=== PATIENT | male | born 1995 | race Caucasian/White ===

== ENCOUNTER 2021-08-19 15:51 | Emergency (ER) | payer OTHER, BC, SELFPAY ==
--- NOTE | ~2021-08-19 | XR_ITS ---
XR finger 3rd LT min 2V 08/19/2021 16:10 INDICATION: Left third finger pain after trauma PROCEDURE: 4 views left third finger COMPARISON: No prior studies for comparison. FINDINGS: Fracture, dislocation or subluxation is not identified. There is mild soft tissue swelling overlying the third proximal phalanx. No foreign bodies are identified. IMPRESSION: 1: NO ACUTE BONE OR JOINT ABNORMALITY IDENTIFIED. Reviewed, dictated and finalized at location A. ALT RAKER
--- NOTE | 2021-08-19 16:02 | ED.UPPEXIN ---
HPI - Extremity Injury (Upper) General Chief Complaint: Extremity Injury, Upper Stated Complaint: lt middle finger inj Time Seen by Provider: 08/19/21 16:02 Source: patient and RN notes reviewed Mode of arrival: ambulatory Limitations: no limitations History of Present Illness HPI narrative: Rajan is a 25 year old male patient who ambulated into [facility]. He states he dropped a steel pipe on left middle finger three weeks ago. States is is red, painful, warm with limited range of motion. Patient states he splinted it at home for a few days. Patient states it is a red ring around the knuckle that has been there for the last 3 weeks. Patient states the ring has not gotten larger or smaller there is no change patient states there was an open area across the MCP joint after initial injury. Patient states it is healed currently there is just a small opening patient states he had green drainage this morning patient states has been cleaning with peroxide and alcohol at least twice a day. Covering with Neosporin and a Band-Aid during the day leaving open at night. MD complaint: injury to: left and finger (middle finger) Related Data Allergies Allergy/AdvReac Type Severity Reaction Status Date / Time No Known Allergies Allergy Verified 08/19/21 16:05 Review of Systems Review of Systems: CONSTITUTIONAL: Denies body aches, fever, chills, or sweats. EYES: Denies visual changes, redness, or discharge. ENT: Denies rhinorrhea, congestion, sore throat, or otalgia. CARDIOVASCULAR: Denies chest pain, palpitations, or edema. RESPIRATORY: Denies cough or dyspnea. GASTROINTESTINAL: Denies abdominal pain, nausea, vomiting, or diarrhea. GENITOURINARY: Denies dysuria or hematuria. SKIN: Denies rash, itching, small open area to left middle finger; MUSCULOSKELETAL: Denies back pain, joint pain, or myalgia; left middle finger pain, redness, and swelling NEUROLOGIC: Denies headache, numbness, tingling, or weakness. PSYCH: Denies depression or anxiety. All systems reviewed & are unremarkable except as noted in HPI and below PMFSH Comments At time of signature, I have reviewed and agree with nursing past medical, surgical, social and family history unless otherwise noted. Please see nursing chart for further information. There is no relevant family history pertinent to the presenting complaint Exam Narrative: GENERAL: Well-appearing, well-nourished, and in no acute distress. HEAD: Normocephalic, atraumatic. EYES: EOMI. No redness or drainage. Conjunctivae normal. ENT: Mucous membranes pink and moist. Nares clear. No rhinorrhea. NECK: Normal AROM. Supple. No lymphadenopathy. CHEST: No respiratory distress. MUSCULOSKELETAL: No bony tenderness. EXTREMITIES: Normal range of motion. left 3rd finger swelling, and limited ROM. SKIN: Warm, dry, no rash. Capillary refill normal. Normal skin turgor; left 3rd finger with 3 cm erythemic area with pinpoint opening; healing, area with clear/green drainage, warm to touch, NEURO: No focal deficits. Alert and oriented x3. Gait steady. PSYCH: Normal affect. No signs of depression or anxiety. Course Vital Signs Vital signs: Vital Signs Temperature 36.7 C 08/19/21 16:11 Pulse Rate 85 08/19/21 16:11 Respiratory Rate 16 08/19/21 16:11 Blood Pressure 161/101 H 08/19/21 16:11 Pulse Oximetry 100 08/19/21 16:11 Temperature 36.7 C 08/19/21 16:11 Pulse Rate 85 08/19/21 16:11 Respiratory Rate 16 08/19/21 16:11 Blood Pressure 161/101 H 08/19/21 16:11 Pulse Oximetry 100 08/19/21 16:11 Reviewed. Pt has been instructed to follow up with his PCP regarding his elevated blood pressure today. MDM - Extremity Injury (Upper) Differential Diagnosis Differential diagnosis: Likely fracture of wrist and fracture of hand Medical Records Attestation: I reviewed the patient's medical records. Critical Care Time Critical Care Time Critical Care Time: No Discharge Plan Disc
[2021-08-19 16:11] VITALS: BP 161/101; PULSE 85; RESP 16; TEMP 36.7; O2SAT 100
== END 2021-08-19 16:46 | disposition home or self-care (01) ==
PROVIDERS: Emergency Provider Nurse Practitioner Family
DX: S63.633A Sprain of interphalangeal joint of left middle finger, initial encounter (principal); W20.8XXA Other cause of strike by thrown, projected or falling object, initial encounter
CPT/HCPCS: 73140; 99213; G0463

== ENCOUNTER 2022-08-27 17:32 | Emergency (ER) | payer BC, SELFPAY ==
--- NOTE | ~2022-08-27 | CT_ITS ---
EXAMINATION: CT abdomen pelvis w con DATE: 08/27/2022 19:10 INDICATION: abd pain, vomiting, transaminitis TECHNIQUE: Computed tomography (CT) of the abdomen and pelvis was performed with 100 mL Omnipaque-350 intravenous contrast. Automated exposure control and iterative reconstruction technique were employe d. The dose-length product was 1781.87 mGy-cm. COMPARISON: None. FINDINGS: Lower thorax: Unremarkable Liver: Diffuse fatty infiltration. Right lobe hemangioma. Biliary/Gallbladder: Gallbladder is normal. No bile duct dilation. Pancreas: No mass or duct dilation. Spleen: Normal. Adrenals:No mass. Kidneys: No mass, stone, or hydronephrosis. GI tract: No small or large bowel dilation. Normal appendix. Mesentery/Peritoneum: No ascites, mass, or free air. Retroperitoneum: No mass. Pelvis: Pelvic organs are within normal limits. Soft Tissues: Soft tissues and body wall unremarkable. Bones: No acute osseous finding. IMPRESSION: Steatosis. Otherwise no acute abdominopelvic process detected. Reviewed, dictated and finalized at location K. L INSTRUCTOR
[2022-08-27 17:35] VITALS: BP 159/79; PULSE 74; RESP 17; TEMP 36.1; O2SAT 99
--- NOTE | 2022-08-27 17:46 | ED.NAVMDI ---
HPI - Nausea/Vomiting/Diarrhea General Chief complaint: Nausea/Vomiting/Diarrhea Stated complaint: vomiting blood Time Seen by Provider: 08/27/22 17:37 Source: patient Mode of arrival: ambulatory Limitations: no limitations History of Present Illness HPI Narrative: This is a 26 year old male that presents to the ER for nausea and vomiting ongoing since last night. Reports he had several episodes of nausea and vomiting last night. Reports today he had an episode of vomiting and noted a couple of streaks of what he thought was bright red blood. He has had no further episodes of vomiting since. He is not on any anticoagulation. Denies fever, chest pain, or abdominal pain. Related Data Allergies Allergy/AdvReac Type Severity Reaction Status Date / Time No Known Allergies Allergy Verified 08/19/21 16:05 Review of Systems Review of Systems: CONSTITUTIONAL: Denies fever CARDIOVASCULAR: Denies chest pain, or edema. RESPIRATORY: Denies dyspnea. GASTROINTESTINAL: Reports nausea and vomiting. Denies abdominal pain or melena All systems reviewed & are unremarkable except as noted in HPI and below PMFSH Past Medical History Medical History (Updated 08/27/22 @ 19:47 by Mary Hernandez PA-C) No active medical problems Social History Social History (Updated 08/27/22 @ 17:53 by Mary Hernandez PA-C) Smoking status: Never smoker Exam Narrative: GENERAL: Well-appearing, well-nourished, and in no acute distress. HEAD: Normocephalic, atraumatic. EYES: EOMI. CHEST: Clear to auscultation. No respiratory distress. No wheezes rales or rhonchi HEART: Regular rate and rhythm. No murmur heard. Normal peripheral pulses. ABDOMEN: Soft, nontender, nondistended, normal active bowel sounds. EXTREMITIES: Normal range of motion. No edema. SKIN: Warm, dry, no rash. NEURO: No focal deficits. Alert and oriented x3. PSYCH: Normal mood and affect Course Vital Signs Vital signs: Vital Signs Temperature 97.0 F L 08/27/22 17:35 Pulse Rate 74 08/27/22 17:35 Respiratory Rate 17 08/27/22 17:35 Blood Pressure 159/79 H 08/27/22 17:35 Pulse Oximetry 99 08/27/22 17:35 Oxygen Delivery Room Air 08/27/22 17:35 Temperature 97.0 F L 08/27/22 17:35 Pulse Rate 80 08/27/22 18:18 Respiratory Rate 17 08/27/22 17:35 Blood Pressure 129/92 H 08/27/22 18:18 Pulse Oximetry 99 08/27/22 17:35 Oxygen Delivery Room Air 08/27/22 17:35 MDM - Nausea/Vomiting/Diarrhea MDM Narrative Medical decision making narrative: Patient presents to the ER for an episode of hematemesis. Reporting seeing a small amount of bright red blood in his emesis hours prior to arrival. He has had no further episodes of hematemesis. His vitals are stable. He is afebrile and nontoxic appearing. CBC without concerning findings. Metabolic panel with mild transaminitis. Lipase is normal. CT scan of the abdomen/pelvis without acute findings, shows steatosis. Patient was updated on case findings. Patient will be started on PPI and instructed to have follow up with GI. He was given warnings to return to the ER Lab Data Attestation: I reviewed the patient's lab results. 08/27/22 17:59 08/27/22 17:55 Labs: Lab Results 08/27/22 08/27/22 08/27/22 Range/Units 17:55 17:55 17:55 WBC (4.5-10.0) K/mm3 RBC (4.6-6.20) M/mm3 Hgb (14.0-18.0) g/dL Hct (42.0-52.0) % MCV (80-100) fl MCH (26-34) pg MCHC (32-36) g/dl RDW (11.5-14.5) % Plt Count (150-375) k/mm3 MPV (7.4-10.4) fl Immature Gran % (Auto) (0-0.5) % Neut % (Auto) (45.5-73.1) % Lymph % (Auto) (18.3-44.2) % Rosebud % (Auto) (2.6-8.5) % Eos % (Auto) (0-4.4) % Baso % (Auto) (0.2-1.2) % Lymph # (Auto) (0.9-3.2) K/mm3 Rosebud # (Auto) (0.1-0.6) K/mm3 Eos # (Auto) (0-0.3) K/mm3 Baso # (Auto) (0.0-0.1) K/mm3 Abs Immat Gran (auto) (0.00-0.031) K/mm3 Absolute Neuts (auto) (1.3-6.
[2022-08-27] MEDS: PANTOPRAZOLE SODIUM IV 40 MG VIAL IV PUSH (17:52)
[2022-08-27 18:07] LABS: Basophils Absolute Auto 0.1 K/mm3 (0.0-0.1); Basophils Percent Auto 0.9 % (0.2-1.2); Eosinophils Absolute Auto 0.4 K/mm3 (0-0.3); Eosinophils Percent Auto 5.8 % (0-4.4); Hematocrit 44.9 % (42.0-52.0); Hemoglobin 15.7 g/dL (14.0-18.0); Immature Granulocyte Absolute 0.03 K/mm3 (0.00-0.031); Immature Granulocyte Percent A 0.4 % (0-0.5); Lymphocytes Absolute Auto 2.66 K/mm3 (0.9-3.2); Lymphocytes Percent Auto 39.5 % (18.3-44.2); Mean Corpuscular Hemoglobin 31.7 pg (26-34); Mean Corpuscular Volume 90.7 fl (80-100); Mean Platelet Volume 9.7 fl (7.4-10.4); Monocytes Absolute Auto 0.5 K/mm3 (0.1-0.6); Monocytes Percent Auto 7.7 % (2.6-8.5); Neutrophils Absolute Auto 3.1 K/mm3 (1.3-6.7); Neutrophils Percent Auto 45.7 % (45.5-73.1); Platelet Count Result 278 k/mm3 (150-375); Red Blood Count 4.95 M/mm3 (4.6-6.20); Red Cell Distribution Width 13.2 % (11.5-14.5); White Blood Count 6.7 K/mm3 (4.5-10.0)
[2022-08-27 18:16] VITALS: BP 139/76; PULSE 66
[2022-08-27 18:17] VITALS: BP 136/87; PULSE 70
[2022-08-27 18:18] VITALS: BP 129/92; PULSE 80
[2022-08-27 18:20] LABS: Prothrombin Time 12.7 Seconds (11.1-14.7)
[2022-08-27 18:21] LABS: Partial Thromboplastin Time 28.8 SECONDS (22.3-36.8)
[2022-08-27 18:45] LABS: Alanine Aminotransferase 106 U/L (6-50); Albumin Level 4.8 g/dL (3.5-5.1); Alkaline Phosphatase 50 U/L (38-126); Anion Gap 11 mmol/L (8-16); Aspartate Amino Transferase 63 U/L (17-59); Bilirubin,Total 0.9 mg/dL (0.2-1.3); Blood Urea Nitrogen 13 mg/dL (9-20); Calcium 9.2 mg/dL (8.4-10.2); Carbon Dioxide 25 mmol/L (22-30); Chloride 107 mmol/L (98-107); Estimated CRCL calculation 179 ml/min; Estimated Glomerular Filt Rate > 60; Glucose 89 mg/dL (65-110); Potassium 3.6 mmol/L (3.4-5.0); Sodium 143 mmol/L (137-145)
[2022-08-27 19:07] LABS: Lipase 58 U/L (23-300)
--- NOTE | 2022-08-27 19:23 | PC.NURSE ---
1914 Assumed pt care from Nabil Charles RN
[2022-08-27 20:20] VITALS: BP 155/81; PULSE 67; RESP 16; O2SAT 98
== END 2022-08-27 20:24 | disposition home or self-care (01) ==
PROVIDERS: Emergency Provider Physician Assistant
DX: K92.0 Hematemesis (principal)
CPT/HCPCS: 36415; 74177; 80053; 83690; 85025; 85610; 85730; 86850; 86900; 86901; 96374; 99284; C9113; Q9967

== ENCOUNTER 2023-04-08 05:10 | Emergency (ER) | payer BC, SELFPAY ==
--- NOTE | ~2023-04-08 | CT_ITS ---
EXAMINATION: CT brain wo con DATE: 04/08/2023 06:22 INDICATION: Headache TECHNIQUE: Computed tomography (CT) of the head was performed without intravenous contrast. The mA wa s adjusted according to patient size. Iterative reconstruction technique was employed. Exam dose: 75 6.67 mGy-cm total exam DLP. COMPARISON: None FINDINGS: No intracranial mass lesion or hemorrhage or cerebrovascular accident is noted. No midline shift or mass effect. Normal ventricular size. Normal greenwood-white matter differentiation. No subdural or epidural hematoma. Minimal mucoperiosteal thickening of the frontal sinuses and mild patchy soft tissue thickening of th e bilateral ethmoid air cells. Minimal mucoperiosteal thickening of the maxillary and right sphenoid sinuses. The mastoid air cells are normally developed and aerated. No fracture or bone destruction of the cranial vault. IMPRESSION: No intracranial abnormality Mild paranasal sinus mucoperiosteal thickening; normal mastoid air cells Reviewed, dictated and finalized at Location A. Reviewed, dictated and finalized at location A.
[2023-04-08 05:15] VITALS: BP 157/92; PULSE 82; RESP 16; TEMP 36.3; O2SAT 99
[2023-04-08 05:28] VITALS: BP 132/77; PULSE 62; RESP 18; O2SAT 97
[2023-04-08] MEDS: diphenhydrAMINE HCl INJ 50 MG/ML VIAL IV PUSH (05:57)
[2023-04-08] MEDS: KETOROLAC 30 MG/ML VIAL (*BKC) IV PUSH (05:57)
[2023-04-08] MEDS: SODIUM CHLORIDE 0.9% IV 1,000 ML 999 ML IV CONT (05:58)
--- NOTE | 2023-04-08 06:01 | ED.GENADULT ---
HPI - General Adult General Chief complaint: Headache <Dread Dolan MD - Last Filed: 04/08/23 06:59> Stated complaint: headache, nausea, bilateral hand numbness <Dread Dolan MD - Last Filed: 04/08/23 06:59> Time Seen by Provider: 04/08/23 05:24 <Dread Dolan MD - Last Filed: 04/08/23 06:59> History of Present Illness HPI narrative: Patient 27-year-old gentleman who presents the emergency department with chief complaint of headache. Patient reports that yesterday he started having some discomfort in his head he reports that he had some tingling in his hands and reports that the headache gradually started to worsen. The patient reports that he took a gram of Tylenol prior to arrival emergency department and reports that he now is having photophobia and reports that his head is pounding all throughout his head. Patient reports no prior history of significant migraines reports he is having no focal neurological deficit. <Dread Dolan MD - Last Filed: 04/08/23 06:59> Related Data Allergies/adverse reactions: Allergies Allergy/AdvReac Type Severity Reaction Status Date / Time No Known Allergies Allergy Verified 04/08/23 07:14 <Dread Dolan MD - Last Filed: 04/08/23 06:59> Review of Systems Review of Systems: A 10 system review of systems was completed on the patient and is negative except for what is stated in the HPI. Nursing and ancillary documentation was reviewed. <Dread Dolan MD - Last Filed: 04/08/23 06:59> PMFSH Past Medical History Medical History: Medical History No active medical problems <Dread Dolan MD - Last Filed: 04/08/23 06:59> Social History Social History: Social History Smoking status: Never smoker <Dread Dolan MD - Last Filed: 04/08/23 06:59> Exam Narrative: GENERAL: Well-appearing, well-nourished, and in no acute distress. HEAD: Normocephalic, atraumatic. EYES: PERRLA and EOMI. ENT: Nares clear, no rhinorrhea or epistaxis. Mucous membranes moist. NECK: Supple. CHEST: Clear to auscultation. No respiratory distress. HEART: Regular rate and rhythm. No murmur heard. Normal peripheral pulses. ABDOMEN: Soft, nontender, nondistended, normal active bowel sounds. EXTREMITIES: Normal range of motion. No edema. SKIN: Warm, dry, no rash. NEURO: No focal deficits. Alert and oriented x3. PSYCH: Normal mood and affect. <Dread Dolan MD - Last Filed: 04/08/23 06:59> Course Course Emergency Course: Normal head CT. Headache improved with migraine cocktail. Discharge home. <He Ramos MD - Last Filed: 04/08/23 08:13> Vital Signs Vital signs: Vital Signs Temperature 97.3 F L 04/08/23 05:15 Pulse Rate 82 04/08/23 05:15 Respiratory Rate 16 04/08/23 05:15 Blood Pressure 157/92 H 04/08/23 05:15 Pulse Oximetry 99 04/08/23 05:15 Oxygen Delivery Room Air 04/08/23 05:15 Temperature 97.3 F L 04/08/23 05:15 Pulse Rate 60 04/08/23 07:12 Respiratory Rate 18 04/08/23 07:12 Blood Pressure 143/87 H 04/08/23 07:12 Pulse Oximetry 96 04/08/23 07:12 Oxygen Delivery Room Air 04/08/23 05:15 <Dread Dolan MD - Last Filed: 04/08/23 06:59> Vital Signs Temperature 97.3 F L 04/08/23 05:15 Pulse Rate 82 04/08/23 05:15 Respiratory Rate 16 04/08/23 05:15 Blood Pressure 157/92 H 04/08/23 05:15 Pulse Oximetry 99 04/08/23 05:15 Oxygen Delivery Room Air 04/08/23 05:15 Temperature 97.3 F L 04/08/23 05:15 Pulse Rate 60 04/08/23 07:12 Respiratory Rate 18 04/08/23 07:12 Blood Pressure 143/87 H 04/08/23 07:12 Pulse Oximetry 96 04/08/23 07:12 Oxygen Delivery Room Air 04/08/23 05:15 <He Ramos MD - Last Filed: 04/08/
--- NOTE | 2023-04-08 06:02 | PC.NURSE ---
pt c/c migraine that started yesterday. pt sts, lights hurt,pt is seeing spots and sts pain is all over. 01/31. pt is laying down with a black t-shirt over his eyes. iv established and labs sent. meds given. waiting on compazine to come from pharm
[2023-04-08 06:18] LABS: Alanine Aminotransferase 88 U/L (6-50); Albumin Level 4.4 g/dL (3.5-5.1); Alkaline Phosphatase 39 U/L (38-126); Anion Gap 9 mmol/L (8-16); Aspartate Amino Transferase 51 U/L (17-59); Bilirubin,Total 0.5 mg/dL (0.2-1.3); Blood Urea Nitrogen 15 mg/dL (9-20); Calcium 9.1 mg/dL (8.4-10.2); Carbon Dioxide 28 mmol/L (22-30); Chloride 104 mmol/L (98-107); Estimated CRCL calculation 182 ml/min; Estimated Glomerular Filt Rate > 60; Glucose 97 mg/dL (65-110); Potassium 3.8 mmol/L (3.4-5.0); Sodium 141 mmol/L (137-145)
[2023-04-08 06:21] LABS: Basophils Absolute Auto 0.1 K/mm3 (0.0-0.1); Basophils Percent Auto 0.7 % (0.2-1.2); Eosinophils Absolute Auto 0.3 K/mm3 (0-0.3); Eosinophils Percent Auto 4.1 % (0-4.4); Hematocrit 43.1 % (42.0-52.0); Immature Granulocyte Absolute 0.03 K/mm3 (0.00-0.031); Immature Granulocyte Percent A 0.4 % (0-0.5); Lymphocytes Absolute Auto 3.12 K/mm3 (0.9-3.2); Mean Corpuscular HGB Conc 34.8 g/dl (32-36); Mean Corpuscular Hemoglobin 31.9 pg (26-34); Mean Corpuscular Volume 91.7 fl (80-100); Mean Platelet Volume 9.6 fl (7.4-10.4); Monocytes Absolute Auto 0.7 K/mm3 (0.1-0.6); Monocytes Percent Auto 9.1 % (2.6-8.5); Neutrophils Absolute Auto 3.7 K/mm3 (1.3-6.7); Neutrophils Percent Auto 46.7 % (45.5-73.1); Platelet Count Result 269 k/mm3 (150-375); Red Cell Distribution Width 12.8 % (11.5-14.5)
[2023-04-08] MEDS: PROCHLORPERAZINE EDISYLATE 10 MG/2 ML VIAL IV PUSH (06:21)
[2023-04-08 07:12] VITALS: BP 143/87; PULSE 60; RESP 18; O2SAT 96
[2023-04-08 08:25] VITALS: BP 123/73; PULSE 60; RESP 18; O2SAT 97
== END 2023-04-08 08:27 | disposition home or self-care (01) ==
PROVIDERS: Emergency Medicine; Emergency Provider Emergency Medicine
DX: R51.9 Headache, unspecified (principal)
CPT/HCPCS: 36415; 70450; 80053; 85025; 96361; 96374; 96375; 99284; J0780; J1200; J1885; J7030

== ENCOUNTER 2023-09-26 19:04 | Emergency (ER) | payer BC, SELFPAY ==
[2023-09-26 19:15] VITALS: BP 162/107; PULSE 95; RESP 20; TEMP 35.7; O2SAT 99
[2023-09-26 20:31] VITALS: BP 131/82; PULSE 85; RESP 21; O2SAT 99
--- NOTE | 2023-09-26 21:23 | ED.RECABL ---
HPI - Recheck/Abnormal Lab/Rx General Chief Complaint: Recheck/Abnormal Lab/Rx Stated Complaint: HTN Time Seen by Provider: 09/26/23 20:29 Source: patient Limitations: no limitations History of Present Illness HPI narrative: Patient is a 27-year-old male present to the emergency department accompanied by his father for multiple complaints. 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 he felt sweaty and also had a very mild headache that was generalized, can take anything for the headache was not maximal intensity upon onset. Patient admits to history of headaches the patient states the headache has resolved. Patient is to see associated tingling sensations in his bilateral arms at the same time which is nearly resolved at this time the patient denies any recent injuries recent illness, cough, chest pain, shortness of breath, abdominal pain, urinary discomfort, diarrhea, melena, hematochezia, sore throat, nasal congestion, sick contacts, who have similar symptoms around him, new or change medications, recent exposures, alcohol use regularly, illicit drug use, vision changes, focal weakness. Patient states that he checked his blood pressure at home and it was high. Related Data Allergies Allergy/AdvReac Type Severity Reaction Status Date / Time No Known Allergies Allergy Verified 09/26/23 20:26 Review of Systems Review of Systems: A 10 system review of systems was completed on the patient and is negative except for what is stated in the HPI. Nursing and ancillary documentation was reviewed. PMFSH Past Medical History Medical History No active medical problems Social History Social History Smoking status: Never smoker Comments At time of signature, I have reviewed and agree with nursing past medical, surgical, social and family history unless otherwise noted. Please see the nursing chart for further information. There is no relevant family history pertinent to the presenting complaint. Exam Narrative: CONST: No acute distress. Well nourished. HENMT: Head is normocephalic and atraumatic. Moist mucous membranes. No posterior oropharynx erythema. EYES: No conjunctival icterus, injection, or pallor. PERRL. Extraocular motions intact. No photophobia. NECK: No meningeal signs. No palpable cervical lymphadenopathy. RESP: Able to speak in full sentences. Normal respiratory effort. CTAB. CARDIO: Regular rate. Regular rhythm. 2+ DP and radial pulses bilaterally. GI: Nondistended. No tenderness to palpation. Soft. : No CVA tenderness to palpation. SKIN: No rashes or lesions noted on exposed skin. NEURO: Oriented x3. No focal neurological deficits. EXTREM/MSK/BACK: No pedal edema. No midline vertebral tenderness to palpation or step-offs. PSYCH: Normal affect. Course Vital Signs Vital signs: Vital Signs Temperature 96.2 F L 09/26/23 19:15 Pulse Rate 95 09/26/23 19:15 Respiratory Rate 20 09/26/23 19:15 Blood Pressure 162/107 H 09/26/23 19:15 Pulse Oximetry 99 09/26/23 19:15 Oxygen Delivery Room Air 09/26/23 19:15 Temperature 96.2 F L 09/26/23 19:15 Pulse Rate 89 09/27/23 00:07 Respiratory Rate 18 09/27/23 00:07 Blood Pressure 128/84 09/27/23 00:07 Pulse Oximetry 97 09/26/23 23:04 Oxygen Delivery Room Air 09/26/23 19:15 MDM - Recheck/Abnormal Lab/Rx MDM Narrative Medical decision making narrative: Patient presents with the above complaint. Initial vitals are remarkable for no significant abnormalities. Physical examination as noted above. Plan discussed: Laboratory analysis and EKG. Patient denies any headache at this time and when offered a migraine cocktail is not wa
--- NOTE | 2023-09-26 21:29 | ECG_ITS ---
Measurements Intervals [place] Rate: 81 P: 49 MN: 185 QRS: 46 QRSD: 103 T: 24 QT: 377 QTc: 438 Interpretive Statements SINUS RHYTHM BASELINE ARTIFACT- I, III, AVL, AVF NORMAL ECG NO PREVIOUS ECG AVAILABLE FOR COMPARISON Electronically Signed On 09-27-2023 6:49:21 [employer] by Kev Pittman D.O.
[2023-09-26 21:48] LABS: Basophils Absolute Auto 0.1 K/mm3 (0.0-0.1); Basophils Percent Auto 1.1 % (0.2-1.2); Eosinophils Absolute Auto 0.4 K/mm3 (0-0.3); Eosinophils Percent Auto 4.5 % (0-4.4); Hematocrit 44.6 % (42.0-52.0); Hemoglobin 15.4 g/dL (14.0-18.0); Immature Granulocyte Absolute 0.03 K/mm3 (0.00-0.031); Immature Granulocyte Percent A 0.4 % (0-0.5); Lymphocytes Absolute Auto 2.96 K/mm3 (0.9-3.2); Lymphocytes Percent Auto 34.7 % (18.3-44.2); Mean Corpuscular HGB Conc 34.5 g/dl (32-36); Mean Corpuscular Hemoglobin 31.3 pg (26-34); Mean Corpuscular Volume 90.7 fl (80-100); Mean Platelet Volume 9.7 fl (7.4-10.4); Monocytes Absolute Auto 0.6 K/mm3 (0.1-0.6); Monocytes Percent Auto 6.8 % (2.6-8.5); Neutrophils Absolute Auto 4.5 K/mm3 (1.3-6.7); Neutrophils Percent Auto 52.5 % (45.5-73.1); Platelet Count Result 296 k/mm3 (150-375); Red Blood Count 4.92 M/mm3 (4.6-6.20); Red Cell Distribution Width 13.1 % (11.5-14.5); White Blood Count 8.5 K/mm3 (4.5-10.0)
[2023-09-26 22:06] LABS: Alanine Aminotransferase 110 U/L (6-50); Albumin Level 4.6 g/dL (3.5-5.1); Alkaline Phosphatase 56 U/L (38-126); Anion Gap 10 mmol/L (8-16); Aspartate Amino Transferase 62 U/L (17-59); Bilirubin,Total 0.5 mg/dL (0.2-1.3); Blood Urea Nitrogen 15 mg/dL (9-20); Calcium 9.7 mg/dL (8.4-10.2); Carbon Dioxide 25 mmol/L (22-30); Chloride 105 mmol/L (98-107); Estimated CRCL calculation 173 ml/min; Estimated Glomerular Filt Rate > 60; Glucose 93 mg/dL (65-110); Potassium 3.9 mmol/L (3.4-5.0); Sodium 140 mmol/L (137-145)
[2023-09-26 22:07] VITALS: BP 120/74; PULSE 85; RESP 12; O2SAT 97
[2023-09-26 22:17] LABS: Troponin I < 0.012 ng/mL (0.000-0.034)
[2023-09-26 23:04] VITALS: BP 130/83; PULSE 90; RESP 13; O2SAT 97
[2023-09-27 00:07] VITALS: BP 128/84; PULSE 89; RESP 18
== END 2023-09-27 00:45 | disposition home or self-care (01) ==
PROVIDERS: Emergency Provider Student in an Organized Health Care Education/Training Program
DX: R51.9 Headache, unspecified (principal)
CPT/HCPCS: 36415; 80053; 83735; 84443; 84484; 85025; 93005; 99284

== ENCOUNTER 2024-01-05 21:29 | Emergency (ER) | payer OTHER, SELFPAY ==
--- NOTE | ~2024-01-05 | XR_ITS ---
EXAMINATION: XR foot LT min 3V DATE: 01/05/2024 21:53 INDICATION: Left foot pain. Trauma. TECHNIQUE: 3 views of left foot were obtained. COMPARISON: None. FINDINGS: Bone alignment is normal. No fracture. Joint spaces are normal. There is an enthesophyte at posterior aspect of calcaneal tuberosity. IMPRESSION: 1. No fracture. Reviewed, dictated and finalized at location E. IMPRESSION: 1. No fracture.
[2024-01-05 21:32] VITALS: BP 154/86; PULSE 92; RESP 18; TEMP 36.3; O2SAT 100
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
[2024-01-05] MEDS: KETOROLAC 30 MG/ML VIAL (*BKC) IM (22:10)
[2024-01-05 22:15] VITALS: BP 148/78; PULSE 89; RESP 18; O2SAT 97
== END 2024-01-05 22:15 | disposition home or self-care (01) ==
PROVIDERS: Emergency Provider Emergency Medicine
DX: S96.912A Strain of unspecified muscle and tendon at ankle and foot level, left foot, initial encounter (principal); V28.49XA Other motorcycle driver injured in noncollision transport accident in traffic accident, initial encounter
CPT/HCPCS: 73630; 96372; 99283; J1885

== ENCOUNTER 2024-05-24 14:33 | Emergency (ER) | payer OTHER, SELFPAY ==
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
[2024-05-24 15:29] LABS: Basophils Absolute Auto 0.1 K/mm3 (0.0-0.1); Basophils Percent Auto 0.6 % (0.2-1.2); Eosinophils Absolute Auto 0.4 K/mm3 (0-0.3); Eosinophils Percent Auto 4.4 % (0-4.4); Hemoglobin 14.6 g/dL (14.0-18.0); Immature Granulocyte Absolute 0.04 K/mm3 (0.00-0.031); Immature Granulocyte Percent A 0.4 % (0-0.5); Lymphocytes Absolute Auto 3.08 K/mm3 (0.9-3.2); Lymphocytes Percent Auto 30.7 % (18.3-44.2); Mean Corpuscular HGB Conc 34.8 g/dl (32-36); Mean Corpuscular Hemoglobin 31.6 pg (26-34); Mean Corpuscular Volume 90.9 fl (80-100); Mean Platelet Volume 9.7 fl (7.4-10.4); Monocytes Absolute Auto 0.9 K/mm3 (0.1-0.6); Monocytes Percent Auto 8.6 % (2.6-8.5); Neutrophils Absolute Auto 5.6 K/mm3 (1.3-6.7); Neutrophils Percent Auto 55.3 % (45.5-73.1); Platelet Count Result 266 k/mm3 (150-375); Red Blood Count 4.62 M/mm3 (4.6-6.20); Red Cell Distribution Width 13.2 % (11.5-14.5)
[2024-05-24 15:38] LABS: Alanine Aminotransferase 94 U/L (6-50); Albumin Level 4.4 g/dL (3.5-5.1); Alkaline Phosphatase 45 U/L (38-126); Anion Gap 11 mmol/L (4-12); Aspartate Amino Transferase 54 U/L (17-59); Bilirubin,Total 0.5 mg/dL (0.2-1.3); Blood Urea Nitrogen 13 mg/dL (9-20); Calcium 8.7 mg/dL (8.4-10.2); Carbon Dioxide 25 mmol/L (22-30); Chloride 104 mmol/L (98-107); Estimated CRCL calculation 202 ml/min; Estimated Glomerular Filt Rate > 60; Glucose 92 mg/dL (65-110); Potassium 3.6 mmol/L (3.4-5.0); Sodium 140 mmol/L (137-145)
[2024-05-24 16:51] LABS: Color Urine Yellow (Yellow)
[2024-05-24 16:52] LABS: Appearance Urine Clear (Clear); Protein Urine Trace mg/dL (Negative); pH Urine 5.5 (5.0-9.0)
[2024-05-24 16:53] LABS: Blood Urine Trace-intact (Negative); Glucose Urine UA Negative (Negative); Ketones Urine Negative (Negative); Nitrate Urine Negative (Negative)
[2024-05-24 16:54] LABS: Add Urine Microscopic? YES; Bilirubin Urine Negative (Negative); Leukocyte Esterase Ur Negative LEU/UL (Negative)
[2024-05-24 16:55] LABS: RBC Urine 0-2 /hpf (0-2)
[2024-05-24 16:57] LABS: WBC Urine None seen /hpf (0-3)
[2024-05-24 16:58] LABS: Bacteria Urine None seen /hpf; Squamous Epithelial Cell Urine None Seen /hpf (Few)
== END 2024-05-24 17:04 | disposition home or self-care (01) ==
PROVIDERS: Emergency Provider Physician Assistant
DX: S83.91XA Sprain of unspecified site of right knee, initial encounter (principal); S50.811A Abrasion of right forearm, initial encounter; S70.211A Abrasion, right hip, initial encounter; M77.31 Calcaneal spur, right foot; K76.0 Fatty (change of) liver, not elsewhere classified; K76.9 Liver disease, unspecified; M47.812 Spondylosis without myelopathy or radiculopathy, cervical region; V28.49XA Other motorcycle driver injured in noncollision transport accident in traffic accident, initial encounter
CPT/HCPCS: 36415; 70450; 71260; 72125; 73080; 73564; 73590; 73610; 73630; 74177; 80053; 81001; 85025; 99284; Q9967